=== PATIENT | male | born 1955 | race Caucasian/White ===

== ENCOUNTER 2017-07-12 12:23 | Emergency (ER) | payer OTHER ==
[~2017-07-12] VITALS: Ht 175.3 cm; Wt 87.0 kg
[~2017-07-12 12:23] MED LIST: ALEVE220 MG PO; LISINOPRIL20 MG PO; NORCO 5/3251 TABLET PO; PANTOPRAZOLE SO40 MG PO
[2017-07-12 14:32] LABS: MCH 30.9 PG (29.0-34.0); MCHC 34.8 G/DL (30.0-36.0); MCV 88.8 FL (86-99); MEAN PLAT.VOLUME 9.8 uM^3 (9.0-12.4); PLATELET COUNT 178 K/uL (156-360); RBC DIS.WIDTH-CV 12.9 % (11.8-14.6); RBC DIS.WIDTH-SD 41.9 % (39-53); RED BLOOD COUNT 4.73 M/uL (4.00-5.50); WHITE BLOOD COUNT 8.8 K/uL (4.1-10.2)
[2017-07-12 14:48] LABS: CHLORIDE 104 mEq/L (99-109); POTASSIUM 4.3 mEq/L (3.7-5.4); SODIUM 138 mEq/L (136-147)
[2017-07-12 14:51] LABS: GLUCOSE 189 mg/dL (70-99)
[2017-07-12 14:52] LABS: ANION GAP 11 MEQ/L (2-14)
[2017-07-12 14:54] LABS: ALKALINE PHOSPHATASE 89 IU/L (3-129); GFR ESTIMATE (CALCULATED) > 59 mL/min/
[2017-07-12 14:55] LABS: UREA NITROGEN (BUN) 19 mg/dL (9-23)
[2017-07-12] MEDS ORDERED: PERCOCET 5/31 TABLET PO (17:07)
[2017-07-12] MEDS ORDERED: FLEXERIL10 MG PO (17:07)
[2017-07-12] MEDS ORDERED: MOTRIN800 MG PO (17:07)
[2017-07-12 17:29] VITALS: BP 192/95
== END 2017-07-12 17:32 | disposition home or self-care (01) ==
LOC: EME 12:23
PROVIDERS: Emergency Medicine
PROC: 3E0234Z Introduction of Serum, Toxoid and Vaccine into Muscle, Percutaneous Approach (ICD-10-PCS; principal; 2017-07-12)
DX: S09.90XA Unspecified injury of head, initial encounter (principal); S01.01XA Laceration without foreign body of scalp, initial encounter; M54.9 Dorsalgia, unspecified; S50.812A Abrasion of left forearm, initial encounter; S50.12XA Contusion of left forearm, initial encounter; V49.40XA Driver injured in collision with unspecified motor vehicles in traffic accident, initial encounter; Y92.410 Unspecified street and highway as the place of occurrence of the external cause; Z23 Encounter for immunization; I10 Essential (primary) hypertension; Z85.038 Personal history of other malignant neoplasm of large intestine
CPT/HCPCS: 70450; 71260; 72125; 72129; 73090; 80053; 85027; 99281; 99285; J1885; J7030

== ENCOUNTER → 2017-11-01 | Outpatient (CLI) | payer OTHER ==
[~2017-11-01] MED LIST changes: +FLEXERIL10 MG PO; +MOTRIN800 MG PO; +PERCOCET 5/31 TABLET PO
== END | disposition home or self-care (01) ==
LOC: AMB 08:30
PROC: 0JPV0WZ Removal of Totally Implantable Vascular Access Device from Upper Extremity Subcutaneous Tissue and Fascia, Open Approach (ICD-10-PCS; principal; 2017-11-01)
DX: Z45.2 Encounter for adjustment and management of vascular access device (principal); Z85.048 Personal history of other malignant neoplasm of rectum, rectosigmoid junction, and anus; Z92.21 Personal history of antineoplastic chemotherapy